=== PATIENT | female | born 1985 | race Caucasian/White ===

== ENCOUNTER 2018-02-19 13:50 | Observation (INO) | payer OTHER ==
[~2018-02-19] VITALS: Ht 165 cm; Wt 85.7 kg
[2018-02-20] MEDS ORDERED: PREN1TAB80 PO (17:50)
== END 2018-02-19 15:50 | disposition home or self-care (01) ==
LOC: 4S 13:50
PROVIDERS: ADMIT Obstetrics & Gynecology; ATTEND Obstetrics & Gynecology
DX: O48.0 Post-term pregnancy (principal); Z3A.40 40 weeks gestation of pregnancy
CPT/HCPCS: 59025; 76805; G0378

== ENCOUNTER 2018-02-20 16:33 | Inpatient (IN) | payer OTHER ==
[~2018-02-20] VITALS: Ht 165 cm; Wt 86.2 kg
[2018-02-20 16:50] VITALS: BP 122/80
[2018-02-20] MEDS ORDERED: PREN1TAB80 PO (17:50)
[2018-02-20] MEDS ORDERED: LIDOCAINE HCL/PF 1% 30 ML VIAL INJ PRN (19:00)
[2018-02-20] MEDS ORDERED: MISOPROSTOL 25 MCG TABLET VG ONE (19:00)
[2018-02-20] MEDS ORDERED: RINGERS SOLUTION,LACTATED 1,000 ML IV SCH (19:00)
[2018-02-20] MEDS ORDERED: METHYLERGONOVINE MALEATE 0.2 MG/ML VIAL IM PRN (19:00)
[2018-02-20] MEDS ORDERED: RINGERS SOLUTION,LACTATED 1,000 ML IV PRN (19:00)
[2018-02-20] MEDS ORDERED: CITRIC ACID/SODIUM CITRATE 30 ML SOLUTION UDCUP PO PRN (19:00)
[2018-02-20] MEDS ORDERED: METOCLOPRAMIDE HCL 5 MG/ML 2 ML VIAL IVP PRN (19:00)
[2018-02-20] MEDS ORDERED: OXYTOCIN 30 UNITS/LACT RINGERS 500 ML IV ONE (19:00)
[2018-02-20 19:37] LABS: BASOPHILS % (AUTO) 0.2 % (0.0-2.0); EOSINOPHILS % (AUTO) 0.5 % (1.0-6.0); HEMATOCRIT 38.5 % (36-46); LYMPHOCYTES # (AUTO) 1.7 K/uL (1.0-4.8); LYMPHOCYTES % (AUTO) 17.3 % (22.0-44.0); MEAN CORPUSCULAR HEMOGLOBIN 29.8 pg (26.0-34.0); MEAN CORPUSCULAR HGB CONC 33.9 G/dL (31.0-37.0); MEAN CORPUSCULAR VOLUME 88 fL (80-100); MONOCYTES # (AUTO) 0.6 K/uL (0.1-1.0); MONOCYTES % (AUTO) 5.7 % (2.0-9.0); NEUTROPHILS # (AUTO) 7.4 K/uL (1.8-7.7); NEUTROPHILS % (AUTO) 76.3 % (40.0-70.0); PLATELET COUNT (AUTO)-OB 244 K/uL (150-450); RED BLOOD CELL COUNT(AUTO) 4.37 MIL/uL (4.00-5.20); RED CELL DISTRIBUTION WIDTH 13.8 % (11.5-14.5)
[2018-02-20] MEDS ORDERED: OXYGEN THERAPY IH SCH (20:00)
[2018-02-20] MEDS: RINGERS SOLUTION,LACTATED 1,000 ML IV SCH (20:05)
[2018-02-20] MEDS: MISOPROSTOL 25 MCG TABLET VG SCH (23:51)
[2018-02-21] MEDS: RINGERS SOLUTION,LACTATED 1,000 ML IV SCH ×2 (03:44→08:32)
[2018-02-21] MEDS: MISOPROSTOL 25 MCG TABLET VG SCH (03:55)
[2018-02-21] MEDS: FentaNYL CITRATE-PF 100 MCG/2 ML VIAL IVP PRN ×4 (05:05→07:42)
[2018-02-21] MEDS ORDERED: AMPICILLIN SODIUM 2 GM/NS 100 ML IV ONE (07:00)
[2018-02-21] MEDS ORDERED: MISOPROSTOL 25 MCG TABLET PO SCH (08:00)
[2018-02-21] MEDS ORDERED: LIDOCAINE HCL/PF 2% 5 ML VIAL ONE (08:43)
[2018-02-21] MEDS ORDERED: BUPIVACAINE HCL/PF 0.25% 10 ML VIAL ONE (08:43)
[2018-02-21] MEDS ORDERED: ROPIVACAINE HCL/PF 0.2% 100 ML ED ONE (08:43)
[2018-02-21] MEDS ORDERED: OXYTOCIN 30 UNITS/LACT RINGERS 500 ML IV ONE ×2 (09:14→09:15)
[2018-02-21] MEDS ORDERED: ROPIVACAINE HCL/PF 0.2% 100 ML ED PRN (09:28)
[2018-02-21] MEDS ORDERED: DiphenhydrAMINE HCL 50 MG/ML VIAL IVP PRN (09:30)
[2018-02-21] MEDS ORDERED: ONDANSETRON HCL 4 MG/2 ML VIAL IVP PRN (09:30)
[2018-02-21] MEDS ORDERED: NALBUPHINE HCL 10 MG/ML VIAL IVP PRN ×2 (09:30)
[2018-02-21] MEDS ORDERED: ACETAMINOPHEN/CODEINE 300-30 MG TABLET PO PRN ×2 (10:30)
[2018-02-21] MEDS ORDERED: GLYCERIN/WITCH HAZEL LEAF 40 PADS JAR TP PRN (10:30)
[2018-02-21] MEDS ORDERED: MEASLES/MUMPS/RUBELLA VACCINE, LIVE 0.5 ML/VIAL SQ ONE (10:30)
[2018-02-21] MEDS ORDERED: IBUPROFEN 600 MG TABLET PO PRN (10:30)
[2018-02-21] MEDS ORDERED: BENZOCAINE 20%/MENTHOL 56 GM SPRAY CANISTER TP PRN (10:30)
[2018-02-21] MEDS ORDERED: LANOLIN 7 GM OINTMENT TP PRN (10:30)
[2018-02-21] MEDS ORDERED: AMPICILLIN SODIUM 1 GM/NS 50 ML IV SCH (11:00)
[2018-02-21] MEDS ORDERED: MAGNESIUM HYDROXIDE SUSPENSION 30 ML UDCUP PO SCH (21:00)
[2018-02-22] MEDS ORDERED: IBUP-1685 PO (10:03)
[2018-02-22] MEDS ORDERED: IBUP-2071 PO (10:04)
== END 2018-02-22 12:40 | disposition home or self-care (01) | DRG 775 ==
LOC: 4S 16:33 → OBSVTOIN 18:53
PROVIDERS: ADMIT Obstetrics & Gynecology; ATTEND Obstetrics & Gynecology
PROC: 10E0XZZ Delivery of Products of Conception, External Approach (ICD-10-PCS; principal; 2018-02-21)
PROC: 0HQ9XZZ Repair Perineum Skin, External Approach (ICD-10-PCS; 2018-02-21)
PROC: 3E0R3BZ Introduction of Anesthetic Agent into Spinal Canal, Percutaneous Approach (ICD-10-PCS; 2018-02-21)
PROC: 00HU33Z Insertion of Infusion Device into Spinal Canal, Percutaneous Approach (ICD-10-PCS; 2018-02-21)
DX: O48.0 Post-term pregnancy (principal); O70.0 First degree perineal laceration during delivery; Z3A.40 40 weeks gestation of pregnancy; Z37.0 Single live birth
CPT/HCPCS: 59200; 86850; 86900; 86901; 89060; J0290; J2590; J2795; J3010; J3490; J7120

== ENCOUNTER 2019-05-11 20:59 | Inpatient (IN) | payer OTHER ==
[~2019-05-11] VITALS: Ht 164 cm; Wt 81.6 kg
[~2019-05-11 20:59] MED LIST: IBUP-2071 PO; PREN1TAB80 PO
[2019-05-11] MEDS ORDERED: RINGERS SOLUTION,LACTATED 1,000 ML IV SCH (23:49)
[2019-05-11] MEDS ORDERED: OXYTOCIN 30 UNITS/LACT RINGERS 500 ML IV ONE (23:49)
[2019-05-11] MEDS ORDERED: RINGERS SOLUTION,LACTATED 1,000 ML IV PRN (23:49)
[2019-05-11 23:58] VITALS: BP 114/72
[2019-05-12] MEDS ORDERED: MISOPROSTOL 25 MCG TABLET VG SCH
[2019-05-12] MEDS ORDERED: CITRIC ACID/SODIUM CITRATE 30 ML SOLUTION UDCUP PO PRN
[2019-05-12] MEDS ORDERED: AMPICILLIN SODIUM 2 GM/NS 100 ML IV ONE
[2019-05-12] MEDS ORDERED: FentaNYL CITRATE-PF 100 MCG/2 ML VIAL IVP PRN
[2019-05-12] MEDS ORDERED: MISOPROSTOL 50 MCG TABLET VG SCH
[2019-05-12] MEDS ORDERED: METOCLOPRAMIDE HCL 5 MG/ML 2 ML VIAL IVP PRN
[2019-05-12] MEDS: RINGERS SOLUTION,LACTATED 1,000 ML IV SCH ×4 (00:29→09:56)
[2019-05-12 00:57] LABS: BASOPHILS % (AUTO) 0.3 % (0.0-2.0); EOSINOPHILS % (AUTO) 0.7 % (1.0-6.0); HEMATOCRIT 35.4 % (36-46); HEMOGLOBIN 11.8 g/dL (12.0-16.0); LYMPHOCYTES # (AUTO) 1.4 K/uL (1.0-4.8); LYMPHOCYTES % (AUTO) 17.8 % (22.0-44.0); MEAN CORPUSCULAR HEMOGLOBIN 30.2 pg (26.0-34.0); MEAN CORPUSCULAR HGB CONC 33.3 G/dL (31.0-37.0); MEAN CORPUSCULAR VOLUME 91 fL (80-100); MONOCYTES # (AUTO) 0.5 K/uL (0.1-1.0); MONOCYTES % (AUTO) 6.7 % (2.0-9.0); NEUTROPHILS % (AUTO) 74.5 % (40.0-70.0); PLATELET COUNT (AUTO)-OB 231 K/uL (150-450); RED CELL DISTRIBUTION WIDTH 13.9 % (11.5-14.5)
[2019-05-12] MEDS: AMPICILLIN SODIUM 1 GM/NS 50 ML IV SCH ×2 (04:20→08:49)
[2019-05-12] MEDS ORDERED: OXYTOCIN 30 UNITS/LACT RINGERS 500 ML IV PRN (06:45)
[2019-05-12] MEDS ORDERED: ROPIVACAINE HCL/PF 0.2% 100 ML ED ONE (07:41)
[2019-05-12] MEDS ORDERED: OXYGEN THERAPY IH SCH (08:00)
[2019-05-12] MEDS ORDERED: ROPIVACAINE HCL/PF 0.2% 100 ML ED PRN (08:15)
[2019-05-12] MEDS ORDERED: ONDANSETRON HCL 4 MG/2 ML VIAL IVP PRN (08:15)
[2019-05-12] MEDS ORDERED: DiphenhydrAMINE HCL 50 MG/ML VIAL IVP PRN (08:15)
[2019-05-12] MEDS ORDERED: SENNA/DOCUSATE SODIUM 8.6-50 MG TABLET PO PRN (11:30)
[2019-05-12] MEDS ORDERED: OxyCODONE HCL/ACETAMINOPHEN 5-325 MG TABLET PO PRN ×2 (11:30)
[2019-05-12] MEDS ORDERED: LANOLIN 7 GM OINTMENT TP PRN (11:30)
[2019-05-12] MEDS ORDERED: GLYCERIN/WITCH HAZEL LEAF 40 PADS JAR TP PRN (11:30)
[2019-05-12] MEDS ORDERED: MAGNESIUM HYDROXIDE SUSPENSION 30 ML UDCUP PO PRN (11:30)
[2019-05-12] MEDS ORDERED: BENZOCAINE 20%/MENTHOL 56 GM SPRAY CANISTER TP PRN (11:30)
[2019-05-12] MEDS ORDERED: IBUPROFEN 800 MG TABLET PO PRN (11:30)
[2019-05-12] MEDS ORDERED: METHYLERGONOVINE MALEATE 0.2 MG TABLET PO PRN (11:30)
[2019-05-13 06:54] LABS: BASOPHILS % (AUTO) 0.3 % (0.0-2.0); EOSINOPHILS % (AUTO) 1.1 % (1.0-6.0); HEMATOCRIT 36.8 % (36-46); HEMOGLOBIN 12.2 g/dL (12.0-16.0); LYMPHOCYTES % (AUTO) 17.8 % (22.0-44.0); MEAN CORPUSCULAR HEMOGLOBIN 30.2 pg (26.0-34.0); MEAN CORPUSCULAR HGB CONC 33.2 G/dL (31.0-37.0); MEAN CORPUSCULAR VOLUME 91 fL (80-100); MONOCYTES # (AUTO) 0.8 K/uL (0.1-1.0); MONOCYTES % (AUTO) 7.1 % (2.0-9.0); NEUTROPHILS # (AUTO) 8.4 K/uL (1.8-7.7); NEUTROPHILS % (AUTO) 73.7 % (40.0-70.0); PLATELET COUNT (AUTO)-OB 206 K/uL (150-450); RED BLOOD CELL COUNT(AUTO) 4.04 MIL/uL (4.00-5.20); RED CELL DISTRIBUTION WIDTH 13.7 % (11.5-14.5)
[2019-05-13] MEDS ORDERED: DSS100 PO (10:02)
[2019-05-13] MEDS ORDERED: FERR-89 PO (10:03)
[2019-05-13] MEDS ORDERED: OXYC-38 PO (10:06)
== END 2019-05-13 13:05 | disposition home or self-care (01) | DRG 807 ==
LOC: 4S 20:59 → OBSVTOIN 20:59
PROVIDERS: ADMIT Specialist; ATTEND Specialist
PROC: 10E0XZZ Delivery of Products of Conception, External Approach (ICD-10-PCS; principal; 2019-05-12)
PROC: 0HQ9XZZ Repair Perineum Skin, External Approach (ICD-10-PCS; 2019-05-12)
PROC: 3E0R3BZ Introduction of Anesthetic Agent into Spinal Canal, Percutaneous Approach (ICD-10-PCS; 2019-05-12)
PROC: 00HU33Z Insertion of Infusion Device into Spinal Canal, Percutaneous Approach (ICD-10-PCS; 2019-05-12)
DX: O99.824 Streptococcus B carrier state complicating childbirth (principal); Z37.0 Single live birth; O69.82X0 Labor and delivery complicated by other cord entanglement, without compression, not applicable or unspecified; O70.0 First degree perineal laceration during delivery; Z3A.39 39 weeks gestation of pregnancy
CPT/HCPCS: 76811; 86850; 86900; 86901; J0290; J2590; J2795; J7120